=== PATIENT | female | born 1960 | race Caucasian/White ===

== ENCOUNTER 2023-11-16 21:29 | Outpatient (REF) | payer OTHER, SELFPAY ==
[2023-11-20 13:10] LABS: Age Gdln ACOG Testing Note (.); HPV Aptima Negative (Negative); IGP, Aptima HPV, rfx 16/18,45 Note (.)
== END 2023-11-16 21:30 | disposition home or self-care (01) ==
LOC: LAB 21:29
PROVIDERS: PCP Internal Medicine; Visit Provider Obstetrics & Gynecology
DX: Z01.419 Encounter for gynecological examination (general) (routine) without abnormal findings (principal)
CPT/HCPCS: 87624; G0145

== ENCOUNTER 2023-11-23 13:57 | Outpatient (OUT) | payer OTHER, SELFPAY ==
--- NOTE | 2023-11-23 13:59 | MM_ITS ---
Patient Name: CRYSTAL ESTEVEZ MR#: [id number] : 1960 Exam Date: 11/23/2023 Ordering Doctor: DR Kyrie Gonzalez . RADIOLOGY REPORT PROCEDURE: MM TOMOSYNTHESIS SCREENING BI COMPARISON: MG MAMM DIAGNOSTIC 3D SEDA CAD, 11/19/2022. MG MAMM SCREEN 3D SEDA CAD, 11/18/2021. MG MAMM SEDA SCRN W CAD DIG, 11/24/2013. INDICATIONS: screening Calculator Name NCI Breast Cancer Risk Assessment Tool 5 Year Breast Cancer Risk 3.60% Lifetime Breast Cancer Risk 15.70% Personal Breast Cancer No Personal Ovarian Cancer No Treatments None Family Cancers Sister with breast cancer at age 55. LOCATION: [facility] BREAST COMPOSITION: Extremely dense, which lowers the sensitivity of mammography. FINDINGS: DIAGNOSTIC CATEGORY 2--BENIGN FINDING: RIGHT BREAST: No significant suspicious finding. No significant change has occurred. LEFT BREAST: No significant suspicious finding. Scattered benign-appearing lymph nodes are present. No significant change has occurred. RECOMMENDATIONS: ROUTINE MAMMOGRAM AND CLINICAL EVALUATION IN 12 MONTHS. PLEASE NOTE: A NORMAL MAMMOGRAM DOES NOT EXCLUDE THE POSSIBILITY OF BREAST CANCER. A CLINICALLY SUSPICIOUS PALPABLE LUMP SHOULD BE BIOPSIED. Dictated by: Jose Alejandro Puga M.D. on 11/25/2023 at 14:38 Approved by: Jose Alejandro Puga M.D. on 11/25/2023 at 14:42
--- NOTE | 2023-11-23 14:00 | XR_ITS ---
[address] [address] Patient Name: CRYSTAL ESTEVEZ MRN: [id number] date: 1960 Sex: F Assigned Patient Location: [facility] Current Patient Location: [facility] Accession/Order Number: [id number] Exam Date: 11/23/2023 14:15 Report Date: 11/23/2023 15:01 At the request of: MARIE DUMONT Procedure: XR DEXA axial skeleton EXAMINATION: XR DEXA axial skeleton HISTORY: Osteopenia after menopause M85.80, Z78.0 COMPARISON: DEXA bone densitometry 11/19/2022 TECHNIQUE: Dual-energy X-ray absorptiometry (DXA) was performed. FINDINGS: SPINE ANALYSIS: Average bone mineral density is 1.345 g/cm2. T-score (standard deviation relative to young adult mean): 1.2 . +1.5% change since prior study. HIP ANALYSIS: Lowest bone mineral density is within the left femoral trochanter, 0.612 g/cm2. T-score (standard deviation relative to young adult mean): -2.1 . +1.1% change since prior study. XR/XR DEXA axial skeleton IMPRESSION: [employer] Classification: Osteopenia - Moderate Fracture Risk Electronically authenticated by: ELPIDIO FRANCO Date: 11/23/2023 15:01
== END 2023-11-23 13:58 | disposition home or self-care (01) ==
LOC: MAMMO 13:57
PROVIDERS: PCP Internal Medicine; Visit Provider Obstetrics & Gynecology
DX: Z12.31 Encounter for screening mammogram for malignant neoplasm of breast (principal); Z80.3 Family history of malignant neoplasm of breast; Z51.89 Encounter for other specified aftercare; M81.0 Age-related osteoporosis without current pathological fracture
CPT/HCPCS: 77063; 77067; 77080

== ENCOUNTER 2024-11-21 15:04 | Outpatient (REF) | payer OTHER, SELFPAY ==
[2024-11-25 15:11] LABS: Age Gdln ACOG Testing Note (.); HPV Aptima Negative (Negative); IGP, Aptima HPV, rfx 16/18,45 Note (.)
== END 2024-11-21 15:05 | disposition home or self-care (01) ==
LOC: LAB 15:04
PROVIDERS: PCP Internal Medicine; Visit Provider Obstetrics & Gynecology
DX: Z01.419 Encounter for gynecological examination (general) (routine) without abnormal findings (principal)
CPT/HCPCS: 88175

== ENCOUNTER 2024-12-12 12:58 | Outpatient (OUT) | payer OTHER, SELFPAY ==
--- NOTE | 2024-12-12 13:01 | MM_ITS ---
Patient Name: CRYSTAL ESTEVEZ MR#: [id number] : 1960 Exam Date: 12/12/2024 Ordering Doctor: DR Kyrie Gonzalez . RADIOLOGY REPORT PROCEDURE: MM TOMOSYNTHESIS SCREENING BI COMPARISON: MM TOMOSYNTHESIS SCREENING BI, 11/23/2023. MG MAMM DIAGNOSTIC 3D SEDA CAD, 11/19/2022. MG MAMM SEDA SCRN W CAD DIG, 11/24/2013. INDICATIONS: Screening for malignant neoplasm Calculator Name NCI Breast Cancer Risk Assessment Tool 5 Year Breast Cancer Risk 3.80% Lifetime Breast Cancer Risk 15.30% Personal Breast Cancer No Personal Ovarian Cancer No Treatments None Family Cancers Sister with breast cancer at age 55. LOCATION: [facility] BREAST COMPOSITION: The breasts are extremely dense, which lowers the sensitivity of mammography. FINDINGS: RIGHT BREAST: No significant suspicious finding. LEFT BREAST: No significant suspicious finding. DIAGNOSTIC CATEGORY 1--NEGATIVE. RECOMMENDATIONS: ROUTINE MAMMOGRAM AND CLINICAL EVALUATION IN 12 MONTHS. PLEASE NOTE: A NORMAL MAMMOGRAM DOES NOT EXCLUDE THE POSSIBILITY OF BREAST CANCER. A CLINICALLY SUSPICIOUS PALPABLE LUMP SHOULD BE BIOPSIED. Dictated by: Hollis Davila DO on 12/12/2024 at 13:42 Approved by: Hollis Davila DO on 12/12/2024 at 13:45
--- OUTSIDE RECORDS SUMMARY | 2024-12-12 13:22 | XMS_ITS | CCD ---
Author Organization [facility] Care Team Providers Care Gasoline Tester Name Role Phone Aria Dinh Primary Care Provider Unavailrohan GONZALEZ ., DR SALAZAR Attending Unavailable ALLEGRA, DR ARIA Bajwa Primary Care Unavailable CARLOS ., DR SALAZAR Admitting Unavailable CARLOS ., DR SALAZAR Consulting Unavailable REIESTARABELLA, DR ARIA Bajwa Primary Care Unavailable CARLOS ., DR SALAZAR Attending Unavailable CARLOS ., DR SALAZAR Admitting Unavailable CARLOS ., DR SALAZAR Consulting Unavailable ZIEBCHANTEL, DR JOSE ALEJANDRO Treadwell Consulting Unavailable Unavailable Primary Care Provider UnavailAria Gtz MD Primary Care Provider ARIA DINH Attending Unavailable ARIA DINH Referring Unavailable ARIA DINH Primary Care Unavailable ARIA DINH Attending Unavailable ARIA DINH Referring Unavailable ARIA DINH Primary Care Unavailable Unavailable Primary Care Provider UnavailMARIE Bashir Attending Unavailable Medications Current Medications Medication Drug Class(es) Dates Sig (Normalized) Sig (Original) alendronic acid 70 mg oral tablet (6 sources) Bisphosphonate Start: 04-11-2024 alendronate (Fosamax) 70 MG tablet Indications: Osteopenia of multiple sites TAKE 1 TABLET EVERY 7 DAYS 12 tablet 3 04/11/2024 Active Start: 01-21-2021 take 1 tablet by gilbert th every week alendronate (FOSAMAX) 70 mg tablet Take 1 tablet (70 mg total) by mouth once a week. 01/21/2021 Active 12 hr cetirizine hydrochloride 5 mg / pseudoephedrine hydrochloride 120 mg extended release oral tablet (2 sources) alpha-Adrenergic Agonist, Histamine-1 Receptor Antagonist Start: 10-19-2024 cetirizine-pseudoephedrine (ZyrTEC-D) 5-120 mg per 12 hr tablet Indications: Non-recurrent acute serous otitis media of left ear Take 1 tablet in the morning and one late afternoon. 30 tablet 10/19/2024 Active hydroxychloroquine sulfate 200 mg oral tablet (7 sources) Antimalarial, Antirheumatic Agent take 2 tablets by mouth once daily hydroxychloroquine (PLAQUENIL) 200 MG tablet Take 400 mg by mouth daily. 0 Active Completed/Discontinued Medications Medication Drug Class(es) Dates Sig (Normalized) Sig (Original) fluticasone propionate 0.05 mg/actuat metered dose nasal spray (3 sources) Corticosteroid Start: 10-19-2024 End: 10-19-2024 take 2 spray(s) nasal route in the morning fluticasone propionate (FLONASE) 50 mcg/actuation nasal spray Indications: Non-recurrent acute serous otitis media of left ear Administer 2 sprays into each nostril in the morning. 9.9 mL 10/19/2024 10/19/2024 Discontinued Start: 10-19-2024 take 2 spray(s) nasa l route in the morning fluticasone propionate (FLONASE) 50 mcg/actuation nasal spray Indications: Non-recurrent acute serous otitis media of left ear Administer 2 sprays into each nostril in the morning. 16 g 10/19/2024 Active Problems Active Problems Problem Classification Problem Date Documented Da te Episodic/Chronic Melanomas of skin (2 sources) Malignant melanoma of axilla ; Translations: [Malignant melanoma of other part of trunk] 02-13-2021 Chronic Osteoarthritis (7 sources) Osteoarthritis; Translations: [Unspecified osteoarthritis, unspecified site] Onset: 05-31-2015 05-31-2015 Chronic Osteoporosis (2 sources) Osteoporosis; Translations: [Age-related osteoporosis without current pathological fracture] 02-13-2021 Chronic Other bone disease and musculoskeletal deformities (1 source) Other specified disorders of bone density and structure, unspecified site; Translations: [OTH D/O BONE DEN STRUCT UNS SITE] Onset: 11-21-2022 Episodic Other screening for suspected conditions (not mental disorders or infectious disease) (6 sources) Encounter for screening for malignant neoplasm of cervix; Translations: [Patient encounter status] Onset: 11-11-2022 Episodic Otitis media and related conditions (2 sources) Acute non-suppurative otitis media - serous; Translations: [Acute serous otitis media, left ear] 10-19-2024 Episodic Residual codes; unclassified (4 sources) Asymptomatic menopausal state; Translations: [ASYMPTOMATIC MENOPAUSAL STATE] Onset: 11-19-2022 Episodic Residual codes; unclassified (1 source) Family history of malignant neoplasm of breast; Translations: [FAMILY HX MALIG NEOPLASM OF BREAST] Onset: 11-21-2022 Episodic Residual codes; unclassified (2 sources) Postmenopausal state; Translations: [Asymptomatic menopausal state] 11-21-2024 Episodic Unclassified (1 source) Unspecified lump in the right breast, overlapping quadrants; Translations: [UNS LUMP RT BREAST OVRLPNG QUADRNTS] Onset: 11-21-2022 Unclassified (1 source) Annual Exam Onset: 03-01-2024 Past or Other Problems Problem Classification Problem Date Documented Date Episodic/Chronic Immunizations and screening for infectious disease (8 sources) Anti-nuclear factor positive; Translations: [Other specified abnormal immunological findings in serum] Onset: 05-31-2015 05-31-2015 Episodic Mood disorders (2 sources) Mood disorders Onset: 03-01-2024 03-01-2024 Results Test Name Value Interpretation Reference Range Facility IGP,APTIMA HPV,AGE GDLNon AGE GDLN ACOG TESTING Note . [facility] Comment on above: TESTS RESULT FLAG UN ITS REF RANGE LAB Clinician Provided Cytology Information Source.............Vagina No. of containers..01 ThinPrep Vial Age Algo ACOG Radha... 31 01 FLAG LEGEND: L-Low Normal,H-High Normal,LL-Alert Low,HH-Alert High <-Panic Low,>-Panic High,A-Abnormal,AA-Critical Abnormal Performed at: 01 =G [address] [place] [address] Jacqueline Dickerson MD, HPV APTIMA Negative Negative [facility] Comment on above: This nucleic acid am plification test detects fourteen high- risk HPV types (16,18,31,33,35,39,45,51,52,56,58,59,66,68) without differentiation. Performed at: = - [address], [place] [id number] Prospect Manager: Jacqueline Dickerson MD, Phone: [phone] Performed at: [address] [id number] Prospect Manager: Jacqueline Dickerson MD, Phone: [phone] IGP, APTIMA HPV, RFX 16/18,45 Note . [facility] Comment on above: TESTS RESULT FLAG UN ITS REF RANGE LAB DIAGNOSIS: 02 NEGATIVE FOR INTRAEPITHELIAL LESION OR MALIGNANCY. CELLULAR CHANGES ASSOCIATED WITH ATROPHY ARE PRESENT. THIS SPECIMEN WAS RESCREENED PART OF OUR CHILD WELFARE ASSISTANT PROGRAM. Specimen adequacy: 02 Satisfactory for evaluation. Areas of partially obscuring inflammatory exudate are present. Performed by: 03 Denice Pennington, Power Plant Operators Supervisor (ASCP) QC reviewed by: 02 Radha Selby, Power Plant Operators Supervisor (ASCP) . 02 Note: Note 02 The Pap smear is a screening test designed to aid in the detection of premalignant and malignant conditions of the uterine cervix. It is not a diagnostic procedure and should not be used as the sole means of detecting cervical cancer. Both false-positive and false-negative reports do occur. Test Methodology: Note 02 This liquid based ThinPrep(R) pap test was screened with the use of an image guided system. HPV Genotype Reflex Note 02 Criteria not met, HPV Genotype not performed. FLAG LEGEND: L-Low Normal,H-High Normal,LL-Alert Low,HH-Alert High <-Panic Low,>-Panic High,A-Abnormal,AA-Critical Abnormal Performed at: 02 WB [facility] [address] [address] Jacqueline Dickerson MD, 03 KWCYT [facility] [place] [facility] [address] [place] [address] Rodolfo Gonsales MD, SPATULA[facility] Urinalysis macro (dipstick) panel (U)on 11-21-2024 Bilirubin, UA Negative Negative - 4(70) +++ mg/dL [facility] Blood, UA Negative Negative - 50 Deshaun/mcL [facility] Clarity, UA Clear [facility] re Color, UA Yellow [facility] Glucose, UA Negative Negative - 1999(110) ++++ mg/dL [facility] Interpretation and review of laboratory results Normal [facility] Ketones, UA Negative Negative - 160(16) ++++ mg/dL [facility] Leukocytes, UA Negative Negative - 500+++ Irasema/mcL [facility] Nitrite, UA Negative Negative - Positive [facility] pH, UA 7 5 - 9 [facility] Protein, UA Negative Negative - 1999(20) ++++ mg/dL [facility] Spec Grav, UA 1.01 1 - 1.03 [facility] Urobilinogen, UA 0.2 0.2 - 12 mg/dL [facility] e MG MAMM DIAGNOSTIC 3D SEDA CA Don 11-19-2022 MG MAMM DIAGNOSTIC 3D SEDA CAD Patient: CHANTELLE ARANA Exam Date: 11/19/2022 : 1960 Gender:F Ordering : DR MARIE GONZALEZ . Admission #: [id number] Family : Order #: [id number] CLICK HERE TO VIEW EXAM RADIOLOGY REPORT PROCEDURE: MAMMOGRAM DIAGNOSTIC 3D BILATERAL CAD, 11/19/2022, 07:50 ULTRASOUND BREAST RIGHT LIMITED, 11/19/2022, 08:29 COMPARISON: MG MAMM SCREEN SEDA W CAD, 10/29/2020. MG MAMM SCREEN SEDA W CAD, 10/27/2019. DIGITIZED_MAMMO, 09/14/2008. MG MAMM SCREEN 3D SEDA CAD, 11/18/2021. INDICATIONS: Lump in right breast Calculator Name NCI Breast Cancer Risk Assessment Tool 5 Year Breast Cancer Risk 3.50% Lifetime Breast Cancer Risk 16.20% Personal Breast Cancer No Personal Ovarian Cancer No Treatments None Family Cancers Sister with breast cancer at age 55. LOCATION: [facility] BREAST COMPOSITION: Extremely dense, which lowers the sensitivity of mammography. FINDINGS: DIAGNOSTIC CATEGORY 2--BENIGN FINDING: RIGHT BREAST: No significant suspicious finding. No significant change has occurred. LEFT BREAST: No significant suspicious finding. Stable, benign appearing lymph node within the lower-outer quadrant. No significant change has occurred. RECOMMENDATIONS: ROUTINE MAMMOGRAM AND CLINICAL EVALUATION IN 12 MONTHS. PLEASE NOTE: A NORMAL MAMMOGRAM DOES NOT EXCLUDE THE POSSIBILITY OF BREAST CANCER. A CLINICALLY SUSPICIOUS PALPABLE LUMP SHOULD BE BIOPSIED. Dictated by: Jose Alejandro Puga M.D. on 11/19/2022 at 08:33 Approved by: Jose Alejandro Puga M.D. on 11/19/2022 at 08:39 Normal [facility] US BREAST RIGHT LIMITEDon US BREAST RIGHT LIMITED Patient: CHANTELLE ARANA Exam Date: 11/19/2022 : 1960 Gender:F Ordering : DR MARIE GONZALEZ . Admission #: [id number] Family : Order #: [id number] CLICK HERE TO VIEW EXAM RADIOLOGY REPORT PROCEDURE: MAMMOGRAM DIAGNOSTIC 3D BILATERAL CAD, 11/19/2022, 07:50 ULTRASOUND BREAST RIGHT LIMITED, 11/19/2022, 08:29 COMPARISON: MG MAMM SCREEN SEDA W CAD, 10/29/2020. MG MAMM SCREEN SEDA W CAD, 10/27/2019. DIGITIZED_MAMMO, 09/14/2008. MG MAMM SCREEN 3D SDEA CAD, 11/18/2021. INDICATIONS: Lump in right breast Calculator Name NCI Breast Cancer Risk Assessment Tool 5 Year Breast Cancer Risk 3.50% Lifetime Breast Cancer Risk 16.20% Personal Breast Cancer No Personal Ovarian Cancer No Treatments None Family Cancers Sister with breast cancer at age 55. LOCATION: [facility] BREAST COMPOSITION: Extremely dense, which lowers the sensitivity of mammography. FINDINGS: DIAGNOSTIC CATEGORY 2--BENIGN FINDING: RIGHT BREAST: No significant suspicious finding. No significant change has occurred. LEFT BREAST: No significant suspicious finding. Stable, benign appearing lymph node within the lower-outer quadrant. No significant change has occurred. RECOMMENDATIONS: ROUTINE MAMMOGRAM AND CLINICAL EVALUATION IN 12 MONTHS. PLEASE NOTE: A NORMAL MAMMOGRAM DOES NOT EXCLUDE THE POSSIBILITY OF BREAST CANCER. A CLINICALLY SUSPICIOUS PALPABLE LUMP SHOULD BE BIOPSIED. Dictated by: Jose Alejandro Puga M.D. on 11/19/2022 at 08:33 Approved by: Jose Alejandro Puga M.D. on 11/19/2022 at 08:39 Normal [facility] XR DEXA BONE DENSITYon 11-19 XR DEXA BONE DENSITY EXAMINATION: XR DEX A BONE DENSITY, 11/19/2022 8:00 AM EDT HISTORY: Menopause present COMPARISON: DEXA bone densitometry 10/29/2020 TECHNIQUE: Dual-energy X-ray absorptiometry (DEXA) bone density study performed for the axial skeleton. FINDINGS: SPINE ANALYSIS: Average bone mineral density is 1.3-5 g/cm2. T-score (standard deviation relative to young adult mean): 1.0 . +2.6% change since prior study. HIP ANALYSIS: Lowest bone mineral density is within the left femoral trochanter, 0.606 g/cm2. T-score (standard deviation relative to young adult mean): -2.1 . -3.4% change since prior study. IMPRESSION: World [employer] Classification: Osteopenia - Moderate Fracture Risk Electronically authenticated by: JOSE ALEJANDRO PUGA Date: 2022-11-19 09:11 Normal [facility] PAP ACOG PANEL 2: 30 to 65on 11-18-2022 . . Normal [facility] Comment on above: Result Comment: Perf ormed at: WB Performed By: #### [id number] #### [facility] [address] [address] [address] Mandy Ceja Age Gdln ACOG Testing 30-65 [facility] Comment on above: Performed By: #### [id number] #### [facility] [address] [address] [address] Mandy Ceja DIAGNOSIS: Comment Normal [facility] Comment on above: Result Comment: UNSA TISFACTORY FOR EVALUATION. Performed at: WB Performed By: #### [id number] #### [facility] [address] [place] [address] Dr. Mandy Ceja HPV Aptima Negative Normal Negative [facility] Comment on above: Result Comment: This nucleic acid amplification test detects fourteen high-risk HPV types (16,18,31,33,35,39,45,51,52,56,58,59,66,68) without differentiation. Performed at: =G Performed By: #### [id number] #### [facility] [address] [address] [address] Mandy Ceja HPV Genotype Reflex Comment Normal [facility] Comment on above: Result Comment: Crit eria not met, HPV Genotype not performed. Performed at: WB Performed By: #### [id number] #### [facility] [address] [place] [address] Dr. Mandy Ceja Methodology: Comment [facility] Comment on above: Result Comment: This liquid based ThinPrep(R) pap test was screened with the use of an image guided system. Performed at: WB Performed By: #### [id number] #### [facility] [address] [place] [address] Dr. Mandy Ceja Note: Comment [facility] Comment on above: Result Comment: The Pap smear is a screening test designed to aid in the detection of premalignant and malignant conditions of the uterine cervix. It is not a diagnostic procedure and should not be used as the sole means of detecting cervical cancer. Both false-positive and false-negative reports do occur. . Performed at: WB Performed By: #### [id number] #### [facility] [address] [address] [address] Mandy Ceja Performed by: Comment Normal [facility] Comment on above: Result Comment: Jumana Blum, Supervisory Power Plant Operators Supervisor (ASCP) Performed at: WB Performed By: #### [id number] #### [facility] [address] [address] [address] Mandy Ceja QC reviewed by: Comment Normal [facility] Comment on above: Result Comment: Danielle Matt, Supervisory Power Plant Operators Supervisor (ASCP) Performed at: WB Performed By: #### [id number] #### [facility] [address] [place] [address] Dr. Mandy Ceja Recommendation: Comment Normal [facility] Comment on above: Result Comment: Sugg est follow up as clinically appropriate. Performed at: WB Performed By: #### [id number] #### [facility] [address] [address] [address] Mandy Ceja Specimen adequacy: Comment Normal [facility] Comment on above: Result Comment: Spec imen processed and examined but unsatisfactory for evaluation of epithelial abnormality because of insufficient cellularity. Performed at: WB Performed By: #### [id number] #### [facility] [address] [place] [address] Dr. Mandy Ceja Vital Signs Date Time Vital Sign Value Performing Clinician Facility 11-21-2024 11: Body mass index (BMI) [Ratio] 19.78 kg/m2 [employer] DO Work Phone: [facility] 11-21-2024 11: Body weight 49.04 kg [employer] DO Work Phone: [facility] 11-21-2024 11:14040 Diastolic blood pressure 78 mm[Hg] [employer] Work Phone: [facility] 11-21-2024 11:14-040 Systolic blood pressure 110 mm[Hg] Marie Carlos DO Work Phone: [facility] 10-19-2024 10:47-0500 Body height 154.9 cm Aria Dinh MD Work Phone: [facility] [employer] 10-19-2024 10:47-0500 Body mass index (BMI) [Ratio] 21.35 kg/m2 Aria Dinh MD Work Phone: [facility] [employer] 10-19-2024 10:47-0500 Body temperature 98.01 [degF] Aria Dinh MD Work Phone: [facility] 10-19-2024 10:47-0500 Body weight 51.26 kg Aria Dinh MD Work Phone: [facility] 10-19-2024 10:47-0500 Diastolic blood pressure 68 mm[Hg] Aria Dinh MD Work Phone: [facility] [employer] 10-19-2024 10:47-0500 Heart rate 69 /min Aria Dinh MD Work Phone: [facility] 10-19-2024 10:47-0500 Systolic blood pressure 127 mm[Hg] Aria Dinh MD Work Phone: [facility] Encounters Encounter Date Encounter Type Care Provider Facility Start: 11-21-2024 End: 11-21-2024 Bamboo flowsheet Marie Carlos DO Work Phone: [facility] Start: 11-21-2024 End: 11-25-2024 Bamboo flowsheet Marie Carlos DO Work Phone: [facility] Start: 11-21-2024 End: 11-25-2024 Clinis[facility] Result Encounter Marie Carlos DO Work Phone: [facility] External Department Unsolicited Start: 11-21-2024 End: 11-21-2024 ambulatory MARIE CARLOS Not Available Start: 11-21-2024 End: 11-21-2024 Patient encounter procedure Marie Carlos DO Work Phone: [facility] Start: 11-21-2024 End: 11-21-2024 Periodic preventive med est patient 40-64yrs Marie Gonzalez DO Work Phone: [facility] Comment on above: Well woman exam with routine gynecological exam; Encounter for screening mammogram for malignant neoplasm of breast; Postmenopausal state Start: 10-19-2024 End: 10-19-2024 Refill [facility] Dinh MD [facility] Comment on above: Non-recurrent acute serous otitis media of left ear Start: 10-19-2024 End: 10-19-2024 Office outpatient visit 15 minutes Aria Dinh MD Work Phone: [facility] Comment on above: Non-recurrent acute serous otitis media of left ear (Primary Dx) Start: 10-19-2024 End: 10-19-2024 ambulatory [facility] Start: 03-01-2024 End: 03-01-2024 ambulatory [facility] Start: 03-01-2024 Encounter for genera l adult medical examination without abnormal findings [facility] Start: 11-08-2023 Letter encounter [employer] Work Phone: Start: 11-19-2022 End: 11-20-[address] ARIA DINH Facility:[facility] Start: 11-16-2022 Letter encounter Aria [facility] Start: 11-11-2022 End: 11-11-[address] MARIE GONZALEZ . Facility:[facility] Start: 08-11-2022 Letter encounter [facility] Start: 11-10-2021 Letter encounter [facility] Start: 05-19-2021 End: 05-19-2021 [facility] Start: 11-18-2020 End: 11-18-2020 Orders Only Melissa Kelly Work Phone: [facility] Start: 11-11-2020 End: 11-11-2020 Letter encounter Aria Dinh [facility] Procedures Date Procedure Procedure Detail Performing Clinician Start: 11-21-2024 Urnls dip stick/tabl et rgnt non-auto w/o micrscp Marie Carlos DO Work Phone: Start: 11-21-2024 IGP,APTIMA HPV,AGE GDLN Marie Carlos DO Work Phone: Start: 03-01-2024 Adult depression scr eening assessment Aria Dinh MD Work Phone: Start: 11-25-2023 Mammography Marie Fazi o DO Work Phone: Start: 11-23-2023 Mammography Aria Moeller Work Phone: Start: 11-16-2023 Microscopic observat ion [Identifier] in Cervix by Cyto stain Marie Carlos DO Work Phone: Plan of Treatment Date Care Activity Detail Author Start: 06-28-2031 DTaP,Tdap and Td Vaccines (2 - Td or Tdap) DTaP,Tdap and Td Vaccines (2 - Td or Tdap) [facility] Start: 06-28-2031 Tetanus vaccination [facility] Start: 03-22-2027 Screening for malign ant neoplasm of colon [facility] Start: 11-15-2026 Screening for malign ant neoplasm of cervix [facility] Start: 11-27-2025 End: 11-27-2025 Patient encounter procedure 11/27/2025 11:00 AM EDT Office Visit [facility] [address] [place] [address] Marie Gonzalez DO [address] [place], [place] [id number] [facility] Start: 03-06-2025 End: 03-06-2025 Patient encounter procedure 03/06/2025 9:00 AM EDT Office Visit [facility] [address] [place] [address] Aria Dinh MD [address] [place] [address], [address] [place] [address] [facility] Start: 03-01-2025 Adult BMI Screening Adult BMI Screen ing [facility] Start: 03-01-2025 Depression Screening Depression Scre ening [facility] Start: 03-01-2025 Tobacco Screening Tobacco Screening [facility] Start: 11-24-2024 Screening for malign ant neoplasm of breast Mammogram [facility] Start: 11-22-2024 Screening for malign ant neoplasm of breast Mammogram [facility] Start: 11-21-2024 End: 01-21-2026 MG Breast - bilateral Screening Bilateral screening mammogram Imaging Routine Encounter for screening mammogram for malignant neoplasm of breast Expected: 11/21/2024, Expires: 01/21/2026 [facility] Work Phone: Comment on above: Expected: 11/21/2024 , Expires: 01/21/2026 Start: 08-29-2024 COVID-19 Vaccine ( season) COVID-19 Vaccine ( season) [facility] Start: 04-24-2024 Influenza vaccination Influenza Vacc ine (#1) [facility] Start: 04-24-2023 COVID-19 Vaccine ( season) COVID-19 Vaccine ( season) [facility] Start: 04-24-2023 Influenza vaccination Influenza Vacc ine (#1) [facility] Start: 05-24-2022 Influenza vaccination Influenza Vacc ine (#1) [facility] Start: 08-14-2021 COVID-19 Vaccine (3 - Booster for Sebastian series) COVID-19 Vaccine (3 - Booster for Sebastian series) [facility] Start: 2021 Hepatitis B (HBV) Vaccine (optional start 60+ years) Hepatitis B (HBV) Vaccine (optional start 60+ years) [facility] Start: 2021 RSV vaccine (optiona l 60+ years) RSV vaccine (optional 60+ years) [facility] Start: 03-24-2021 Influenza vaccination Influenza Vacc ine (#1) [facility] Start: 05-24-2020 Influenza vaccination Influenza Vacc ine (#[facility]) [facility] Start: 2011 Measurement of occul t blood in single stool specimen FIT [facility] Start: 2011 Screening for malign ant neoplasm of breast [facility] Start: 2011 Screening for malign ant neoplasm of colon CRC Screening [facility] Start: 2011 Varicella-zoster vaccine (product) Shingles (RZV) Vaccine (1 of 2) [facility] Start: 2006 Cholesterol [Mass/Vol] Cholesterol [facility] Start: 2006 Screening for malign ant neoplasm of colon [facility] Start: 2001 Screening for malign ant neoplasm of breast [facility]amm[facility] Start: 1991 Screening for malign ant neoplasm of cervix HPV/Cotest [facility] Start: 1982 Screening for malign ant neoplasm of cervix [facility] Start: 1980 Hepatitis A (HAV) Vaccine (optional start 19+ years) Hepatitis A (HAV) Vaccine (optional start 19+ years) [facility] Start: 1979 Hepatitis C antibody , confirmatory test Hepatitis C Antibody [facility] Start: 1979 Hepatitis C screening Hepatitis C An tibody [facility] Start: 1979 Tetanus + diphtheria + acellular pertussis vaccine (product) Tdap Booster [facility] Start: 1976 HIV screening HIV Test [facility] Start: 1973 COVID-19 Vaccine (1) COVID-19 Vaccin e (1) [facility] Start: 1961 Colonoscopy Colonoscopy [facility] Start: 1961 Screening for malign ant neoplasm of colon [facility] THIN PREP TIS PAP AN D HR HPV DNA THIN PREP TIS PAP AND HR HPV DNA Pathology and Cytology Routine Well woman exam with routine gynecological exam Ordered: 11/21/2024 [facility] Comment on above: Ordered: 11/21/2024 Immunizations Immunization Date Immunization Notes Care Provider Bianca martinez 07-04-2024 influenza virus vacc ine, unspecified formulation Marie Gonzalez DO Work Phone: [facility] 06-25-2023 influenza, injectabl e, quadrivalent, preservative free Aria Dinh MD Work Phone: [facility] 06-08-2022 Covid-19, Mrna, Lnp- s, Bivalent, Pf, 50mcg/0.5ml or 25mcg/0.25ml Aria Dinh MD Work Phone: [facility] 06-08-2022 influenza, injectabl e, quadrivalent, preservative free Aria Dinh MD Work Phone: [facility] 06-28-2021 influenza, injectabl e, quadrivalent, preservative free [facility] 06-28-2021 tetanus toxoid, redu casie diphtheria toxoid, and acellular pertussis vaccine, adsorbed [facility] 06-28-2021 influenza virus vacc ine, unspecified formulation [facility] 10-31-2020 COVID-19 Vaccine, vector-nr, [id number], PF, 0.5mL Aria Dinh MD Work Phone: [facility] 05-22-2020 influenza, injectabl e, quadrivalent, preservative free [facility] 06-08-2019 zoster vaccine recombinant [facility] 04-05-2019 zoster vaccine recombinant [facility] 07-02-2018 Influenza, injectabl e, Madin [place] Canine Kidney, preservative free, quadrivalent [facility] 06-16-2015 influenza, seasonal, injectable, preservative free [facility] 06-16-2015 influenza virus vacc ine, unspecified formulation [facility] 08-15-2009 novel Influenza-H1N1 -09, live virus for nasal administration [facility] Payers Date Payer Category Payer Commercial Managed C are - POS [employer] [id number] 2015 [facility] (unspecified) [employer] [facility] Address: [address] [place] [address] [id number] 2011 Unknown [employer]ITIONAL [employer] TRADITIONAL [id number] 2011-Present [place], [place] Indemnity [id number] 2011 Unknown [employer] - [employer] TRADITIONAL [id number] 2011-Present [address] [place] [address] Indemnity [id number] 1961 Unknown [id number] 1961 Unknown [id number] 1961 Unknown [id number] 1961 Unknown [id number] 1961 Unknown [id number] 1959 Private Health Insurance [id number] Social History Date Type Detail Facility Start: 05-31-2015 Tobacco smoking stat us [facility] Unknown if [facility] Start: 1960 Sex Assigned At Not on file [facility] Start: 10-19-2024 End: 11-21-2024 Gender identity Not on file [facility] tem Start: 10-29-2023 End: 03-01-2024 Tobacco smoking status NHIS Never smoked tobacco [facility] Start: 03-01-2024 Tobacco use and exposure Smokeless tobacco non-user [facility] Start: 10-19-2024 End: 11-21-2024 Alcoholic beverage intake Current drinker of alcohol (finding) [facility] Start: 10-19-2024 End: 11-21-2024 History of Social function [facility] How hard is it for y ou to pay for the very basics like food, housing, medical care, and heating Not hard at all [facility] Start: 03-29-2015 Sex Female (finding) [facility] Start: 10-29-2023 Alcohol Comment Occasional alcohol u se [facility] Start: 1960 Sex assigned at Female [facility] Start: 11-09-2023 Gender identity Identifies as female gender (finding) [facility] History of Present illness Narrative 11-21-2024 Radha Joyce NP - 11/21/2024 11:00 AM EDT Note Date & Type Note Facility 11-21-2024 History of Presen t illness Narrative Reason for Appointment: Patient ID: Chantelle Arana is a 64 y.o. female who presents for Well Women Visit Patient presents today for Annual Exam. MEDICATIONS Current Outpatient Medications Medication Instructions alendronate (FOSAMAX) 70 mg, Oral, Every 7 days ALLERGIES No Known Allergies PROBLEMS Active Ambulatory Problems Diagnosis Date Noted No Active Ambulatory Problems Resolved Ambulatory Problems Diagnosis Date Noted No Resolved Ambulatory Problems Past Medical History: Diagnosis Date Breast cancer screening by mammogram Encounter for gynecological examination (general) (routine) without abnormal findings Melanoma (CMS/HCC) Osteopenia of multiple sites Post-menopausal Scleroderma (CMS/HCC) HISTORY PAST MEDICAL HISTORY SOCIAL HISTORY Past Medical History: Diagnosis Date Breast cancer screening by mammogram Encounter for gynecological examination (general) (routine) without abnormal findings Melanoma (CMS/HCC) Osteopenia of multiple sites Post-menopausal Scleroderma (CMS/HCC) Social History Tobacco Use Smoking status: Never Smokeless tobacco: Not on file Substance Use Topics Alcohol use: Yes Comment: Occasional alcohol use Drug use: Never FAMILY HISTORY Family History Problem Relation Name Age of Onset Hypertension Mother Hypertension Father Cancer Father Cancer Sibling SURGICAL HISTORY Past Surgical History: Procedure Laterality Date HYSTERECTOMY 2015 REVIEW OF SYSTEMS Review of Systems: Review of Systems Constitutional: Negative. HENT: Negative. Eyes: Negative. Respiratory: Negative. Cardiovascular: Negative. Gastrointestinal: Negative. Genitourinary: Negative. Musculoskeletal: Negative. Skin: Negative. Neurological: Negative. All other systems reviewed and are negative. Hematological: Negative. Endocrine: Negative. Allergic/Immunologic: Negative. OBJECTIVE Objective: Physical Exam Constitutional: Appearance: Normal appearance. She is well-developed. Genitourinary: Vulva normal. Breasts: Breasts are soft. Right: Normal. Cardiovascular: Rate and Rhythm: Normal rate and regular rhythm. Pulmonary: Effort: Pulmonary effort is normal. Breath sounds: Normal breath sounds. Abdominal: General: Bowel sounds are normal. There is no distension. Palpations: Abdomen is soft. Tenderness: There is no abdominal tenderness. There is no guarding or rebound. Musculoskeletal: General: No swelling. Normal range of motion. Right lower leg: No edema. Left lower leg: No edema. Neurological: Mental Status: She is alert and oriented to person, place, and time. Skin: General: Skin is warm and dry. Psychiatric: Mood and Affect: Mood normal. Behavior: Behavior normal. Vitals and nursing note reviewed. Exam conducted with a academic physician present. Vitals: Estimated body mass index is 19.78 kg/m as calculated from the following: Height as of 11/16/23: 5' 2 . Weight as of this encounter: 108 lb 1.9 oz. BP: 110/78 No LMP recorded. Patient has had a hysterectomy. ASSESSMENT & PLAN ICD-10-CM 1. Well woman exam with routine gynecological exam Z01.419 THIN PREP TIS PAP AND HR HPV DNA POCT urinalysis dipstick manually resulted 2. Encounter for screening mammogram for malignant neoplasm of breast Z12.31 Bilateral screening mammogram Bilateral screening mammogram 3. Postmenopausal state Z78.0 Annual Exam: Patient presents today for an annual exam. Patient states she is doing well and has no complaints. Pap was obtained without difficulty. Orders Placed This Encounter Procedures Bilateral screening mammogram POCT urinalysis dipstick manually resulted Follow Up: Patient is to return in one year for annual unless needed otherwise. Documented by Radha Joyce NP on behalf of: Marie Gonzalez DO documented in this encounter [facility] History of Present illness Narrative 10-19-2024 Aria Dinh MD - 10/19/2024 10:45 AM EST Note Date & Type Note Facility 10-19-2024 History of Presen t illness Narrative Subjective Patient ID: Chantelle Arana is a 64 y.o. female. Comes in with decreased hearing in her left ear. It started during a recent flight. Not painful. She has had minor congestion. OTC nasal decongestant hasn't really helped. No sore throat, no fever. The following portions of the patient's history were reviewed and updated as appropriate: allergies, current medications, past medical history, past social history, and problem list. Review of Systems Objective Physical Exam Constitutional: Comments: Afebrile and not toxic. She hears normal conversation without difficulty. HENT: Right Ear: Tympanic membrane normal. Ears: Comments: Fluid in the left ear Nose: Comments: Minor nasal congestion Lymphadenopathy: Cervical: No cervical adenopathy. Neurological: Mental Status: She is alert. Assessment/Plan Reviewed with her. If her symptoms do not clear with treatment, she will let me know. Diagnoses and all orders for this visit: Non-recurrent acute serous otitis media of left ear - cetirizine-pseudoephedrine (ZyrTEC-D) 5-120 mg per 12 hr tablet; Take 1 tablet in the morning and one late afternoon. - fluticasone propionate (FLONASE) 50 mcg/actuation nasal spray; Administer 2 sprays into each nostril in the morning. documented in this encounter [facility] Evaluation note Note Date & Type Note Facility Evaluation note Diagnosis Non-recurrent acute serous otitis media of left ear documented in this encounter [facility] Evaluation note Note Date & Type Note Facility Evaluation note Diagnosis Non-recurrent acute serous otitis media of left ear- Primary documented in this encounter [facility] Evaluation note Note Date & Type Note Facility Evaluation note Diagnosis Well woman exam with routine gynecological exam Routine gynecological examination Encounter for screening mammogram for malignant neoplasm of breast Postmenopausal state Asymptomatic postmenopausal status (age-related) (natural) documented in this encounter [facility] Instructions Note Date & Type Note Facility Instructions Not on filedocumented in this en counter [facility] Instructions Note Date & Type Note Facility Instructions Not on filedocumented in this en counter [facility] Summary Purpose Family History No Family History Records FoundNo Family History Records FoundNo Family History Records Found Advance Directives No Advanced Directives Records FoundNo Advanced Directives Records FoundNo Advanced Directives Records Found Additional Source Comments Care Teams (unrecognized sec tion and content) Gasoline [employer] Relationship Specialty Start Date End Date Aria Dinh. 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 Specialty Start Date End Date Aria Dinh MD [address] [place] [address], [address] [place] [address] PCP - General Pediatrics 03/05/18 INFORMATION SOURCE (unrecogn ized section and content) DATE CREATED AUTHOR 11/22/2022 [facility] DATE CREATED AUTHOR AUTHOR'S ORGANIZ ATION 10/21/2024 [facility] DATE CREATED AUTHOR AUTHOR'S ORGANIZ ATION 11/22/2024 [facility] EPIC Reason for Visit (unrecogniz ed section and content) Reason Comments Med Change Request Reason Comments Well Women Visit FOR RECORDS PERTAINING TO PATIENTS WHO ARE OR HAVE BEEN ENROLLED IN A CHEMICAL DEPENDENCY/SUBSTANCEABUSE PROGRAM, SOME INFORMATION MAY BE OMITTED. This clinical summary was aggregated from multiple sources. Caution should be exercised in using it in the provision of clinical care. This summary normalizes information from multiple sources, and as a consequence, information in this document may materially change the coding, format and clinical context of patient data. In addition, data may be omitted in some cases. CLINICAL DECISIONS SHOULD BE BASED ON THE PRIMARY CLINICAL RECORDS. [facility] provides no warranty or guarantee of the accuracy or completeness of information in this document.
== END 2024-12-12 12:59 | disposition home or self-care (01) ==
LOC: MAMMO 12:59
PROVIDERS: PCP Internal Medicine; Visit Provider Obstetrics & Gynecology
DX: Z12.31 Encounter for screening mammogram for malignant neoplasm of breast (principal); Z80.3 Family history of malignant neoplasm of breast
CPT/HCPCS: 77063; 77067